=== PATIENT | female | born 1970 | race Caucasian/White ===

== ENCOUNTER 2017-12-13 19:26 | Emergency (ER) | payer SELFPAY ==
[2017-12-13] MEDS ORDERED: MORPHINE SULFATE 10 MG/ML IM ONE (20:05)
[2017-12-13] MEDS ORDERED: Phenergan 25 MG INJ IV ONE (20:05)
[2017-12-13] MEDS ORDERED: Sodium Chloride 0.9% 1000 ML 1,000 ML IV STA (20:05)
[2017-12-13] MEDS ORDERED: Hydromorphone 1 mg/ml Ampule IV ONE ×3 (20:10→22:32)
--- NOTE | 2017-12-13 20:10 | ERPHSYRPT ---
- History of Present Illness Time Seen by Provider: 12/13/17 19:54 Historian: patient Exam Limitations: no limitations Patient Subjective Stated Complaint: pt c/o abd pain, nausea, vomiting blood since this morning Triage Nursing Assessment: pt awake and alert, asnwers questions approp. pt ambulate from wheelchair to stretcher with steady gait noted. respriations nonlabored with lungs cta. abd soft, nontender to light palpation. hypoo bowel sounds noted. pt vomiting thick red blood. Physician History: FOR THE PAST 4 HOURS PT HAS HAD EPIGASTRIC PAIN WITHOUT RADIATION, VOMITED X7 WITH BLOOD AND HAD A BM TODAY WITH DARK BLOOD; DENIES FEVER, HEADACHE, DIARRHEA. PT HAS HAD BLEEDING ULCERS IN THE PAST. Allergies/Adverse Reactions: adhesive Allergy (Verified 12/13/17 19:50) Iodinated Contrast- Oral and IV Dye Allergy (Verified 12/13/17 19:50) Proton Pump Inhibitors Allergy (Verified 12/13/17 19:50) Sulfa (Sulfonamide Antibiotics) Allergy (Verified 12/13/17 19:50) tramadol Allergy (Verified 12/13/17 19:50) metoclopramide [From Reglan] Adverse Reaction (Verified 12/13/17 19:50) morphine Adverse Reaction (Verified 12/13/17 19:50) NSAIDS (Non-Steroidal Anti-Inflamma Adverse Reaction (Verified 12/13/17 19:50) prochlorperazine [From Compazine] Adverse Reaction (Verified 12/13/17 19:50) Home Medications: Folic Acid 1 mg [Folate 1 mg] 1 mg PO DAILY 12/13/17 [History] Levetiracetam [Keppra] 1,000 mg PO BID 12/13/17 [History] Potassium Chloride 60 meq PO BID 12/13/17 [History] Ranitidine HCl [Zantac] 150 mg PO BID 12/13/17 [History] Ropinirole HCl [Requip] 1 mg PO HS 12/13/17 [History] Sertraline HCl [Zoloft] 100 mg PO HS 12/13/17 [History] Spironolactone [Aldactone] 50 mg PO DAILY 12/13/17 [History] Hx Tetanus, Diphtheria Vaccination/Date Given: Yes Hx Influenza Vaccination/Date Given: Yes Hx Pneumococcal Vaccination/Date Given: No Immunizations Up to Date: Yes - Review of Systems Constitutional: No Fever Respiratory: No Dyspnea Cardiac: No Chest Pain Abdominal/Gastrointestinal: Abdominal Pain, Vomiting, Hematemesis, Melena, No Diarrhea Skin: No Rash Neurological: No Headache All Other Systems: Reviewed and Negative - Past Medical History Pertinent Past Medical History: Yes Neurological History: Stroke Respiratory History: Pulmonary Embolism Other Medical History: gitelmans syndrome - Past Surgical History Past Surgical History: Yes Gastrointestinal: Cholecystectomy, Hernia Repair Female Surgical History: Section, Tubal Ligation Other Surgical History: espahagus, ivc filter, port placement - Social History Smoking Status: Never smoker Exposure to second hand smoke: No Drug Use: none Patient Lives Alone: No - Female History Hx Last Menstrual Period: ablation- 2 yrs Hx Now: No - Nursing Vital Signs Nursing Vital Signs: Initial Vital Signs Temperature 99.3 F 12/13/17 19:40 Pulse Rate 118 H 12/13/17 19:40 Respiratory Rate 22 12/13/17 19:40 Blood Pressure 123/82 12/13/17 19:40 O2 Sat by Pulse Oximetry 98 12/13/17 19:40 Pain Scale Pain Intensity 4 - Physical Exam General Appearance: alert Eye Exam: PERRL/EOMI Ears, Nose, Throat Exam: dry mucous membranes Neck Exam: normal inspection Respiratory Exam: lungs clear Cardiovascular Exam: tachycardia Gastrointestinal/Abdomen Exam: soft, tenderness (MILD EPIGASTRIC TENDERNESS), other (B.S. HYPOACTIVE BUT NORMOTONIC) Rectal Exam: normal rectal tone, No blood (ER NURSE PRESENT DURING EXAM) Back Exam: normal range of motion Extremity Exam: normal inspection, No pedal edema Neurologic Exam: alert, cooperative Skin Exam: warm, dry SpO2 Interpretation: normal SpO2: 98 Oxygen Delivery: Room Air - Course Nursing assessment & vital signs reviewed: Yes - CT Exams Abdomen/Pelvis CT Interpretation: Discussed w/radiologist (NO COMPS. SMALL HH W/GERD. A FEW BILATERAL RENAL HYPERDENSE CORTICAL LESIONS WITH LARGEST IN RIGHT KIDNEY 2 CM, MASS VS VISCOUS/COMPLEX CYSTS. MODERATE DIFFUSE FECAL STASIS W/O OBSTRUCTION. NORMAL APPY. SUSPECT 4 CM RIGHT UTERINE FIBROID. IVC FILTER. REMAINING ABD/PEL NEGATIVE.) Ordered Tests: Active Orders 24 hr Category Date Time Status Clean Catch Urine Specimen STAT Care 12/13/17 20:05 Active IV Insertion STAT Care 12/13/17 20:05 Active ABDOMEN AND PELVIS W/0 CONTRAS [CT] Stat Exams 12/13/17 20:06 Taken AMYLASE Stat Lab 12/13/17 20:20 Completed CBC W DIFF Stat Lab 12/13/17 20:20 Completed CMP Stat Lab 12/13/17 20:20 Completed LIPASE Stat Lab 12/13/17 20:20 Completed MAGNESIUM Stat Lab 12/13/17 20:20 Completed Occult Blood,Stool Other Stat Lab 12/13/17 21:21 Completed PROTIME WITH INR Stat Lab 12/13/17 20:20 Completed PTT Stat Lab 12/13/17 20:20 Completed UA W/RFX UR CULTURE Stat Lab 12/13/17 21:21 Completed Urine Triage Profile Stat Lab 12/13/17 21:21 Completed Medication Summary Generic Name Dose Route Start Last Admin Trade Name Freq PRN Reason Stop Dose Admin Potassium Chloride 20 meq in 100 mls @ 50 mls/hr 12/13/17 21:15 12/13/17 22: 24 Potassium Chloride 20 Meq In Water 100ml IV 12/14/17 01:14 50 mls/hr Q2H MARCI Administration Discontinued Medications Generic Name Dose Route Start Last Admin Trade Name Freq PRN Reason Stop Dose Admin Diphenhydramine HCl 50 mg 12/13/17 22:31 12/13/17 22:39 Benadryl 50 Mg/Ml IV 12/13/17 22:32 50 mg STAT ONE Administration Diphenhydramine HCl Confirm 12/13/17 22:36 Benadryl 50 Mg/Ml Administered 12/13/17 22:37 Dose 50 mg .ROUTE .STK-MED ONE Hydromorphone HCl 1 mg 12/13/17 20:10 12/13/17 20:22 Hydromorphone 1 Mg/Ml Ampule IV 12/13/17 20:11 1 mg STAT ONE Administration Hydromorphone HCl Confirm 12/13/17 20:14 Dilaudid 2 Mg Injection Administered 12/13/17 20:15 Dose 2 mg .ROUTE .STK-MED ONE Hydromorphone HCl 1 mg 12/13/17 20:50 12/13/17 20:59 Hydromorphone 1 Mg/Ml Ampule IV 12/13/17 20:51 1 mg STAT ONE Administration Hydromorphone HCl 1 mg 12/13/17 22:32 12/13/17 22:38 Hydromorphone 1 Mg/Ml Ampule IV 12/13/17 22:33 1 mg STAT ONE Administration Hydromorphone HCl Confirm 12/13/17 22:36 Dilaudid 2 Mg Injection Administered 12/13/17 22:37 Dose 2 mg .ROUTE .STK-MED ONE Sodium Chloride 1,000 mls @ 999 mls/hr 12/13/17 20:05 12/13/17 20:24 Sodium Chloride 0.9% 1000 Ml IV 12/13/17 21:05 999 mls/hr .Q1H1M STA Administration Sodium Chloride Confirm 12/13/17 20:14 Sodium Chloride 0.9% 1000 Ml Administered 12/13/17 20:15 Dose 1,000 mls @ ud .ROUTE .STK-MED ONE Magnesium Sulfate/Dextrose 100 mls @ 200 mls/hr 12/13/17 21:13 12/13/17 21:33 Magnesium 1 Gm / 100 Ml D5w IV 12/13/17 21:42 200 mls/hr STAT ONE Administration Magnesium Sulfate/Dextrose Confirm 12/13/17 21:30 Magnesium 1 Gm / 100 Ml D5w Administered 12/13/17 21:31 Dose 100 mls @ ud IV .STK-MED ONE Morphine Sulfate 10 mg 12/13/17 20:05 12/13/17 20:33 Morphine Sulfate 10 Mg/Ml IM 12/13/17 20:06 Not Given STAT ONE Ondansetron HCl 4 mg 12/13/17 22:19 12/13/17 22:23 Zofran 4 Mg/2 Ml Vial IV 12/13/17 22:20 4 mg STAT ONE Administration Ondansetron HCl Confirm 12/13/17 22:22 Zofran 4 Mg/2 Ml Vial Administered 12/13/17 22:23 Dose 4 mg .ROUTE .STK-MED ONE Promethazine HCl 12.5 mg 12/13/17 20:05 12/13/17 20:22 Phenergan 25 Mg Inj IV 12/13/17 20:06 12.5 mg STAT ONE Administration Promethazine HCl Confirm 12/13/17 20:14 Phenergan 25 Mg Inj Administered 12/13/17 20:15 Dose 25 mg .ROUTE .STK-MED ONE Lab/Rad Data: Laboratory Result Diagrams 12/13/17 20:20 12/13/17 20:20 Laboratory Results 12/13/17 12/13/17 12/13/17 Range/Units 21:21 21:21 21:21 WBC (4.0-10.5) K/mm3 RBC (4.1-5.4) M/mm3 Hgb (12.0-16.0) gm/dl Hct (35-47) % MCV (78-100) fl MCH (26-32) pg MCHC (32-36) g/dl RDW (11.5-14.0) % Plt Count (150-450) K/mm3 MPV (6-9.5) fl Gran % (36.0-66.0) % Lymphocytes % (24.0-44.0) % Monocytes % (0.0-12.0) % Eosinophils % (0.00-5.0) % Basophils % (0.0-0.4) % Basophils # (0-0.4) INR (0.8-3.0) APTT (25.3-37.0) SECONDS Sodium (136-145) mEq/L Potassium (3.5-5.1) mEq/L Chloride (98-107) mEq/L Carbon Dioxide (21-32) mEq/L Anion Gap (5-15) MEQ/L BUN (9-20) mg/dL Creatinine (0.55-1.30) mg/dl Estimated GFR ML/MIN Glucose (70-110) MG/DL Calcium (8.5-10.1) mg/dL Magnesium (1.8-2.4) mg/dL Total Bilirubin (0.2-1.0) mg/dL AST (15-37) U/L ALT (12-78) U/L Alkaline Phosphatase (46-116) U/L Serum Total Protein (6.4-8.2) gm/dL Albumin (3.4-5.0) g/dL Amylase (25-115) U/L Lipase (73-393) U/L Ur Collection Type CCMS Urine Color YELLOW (YELLOW) Urine Appearance SLIGHTLY CLOUDY (CLEAR) Urine pH 6.0 (5-6) Ur Specific [place] 1.010 (1.005-1.025) Urine Protein NEGATIVE (Negative) Urine Ketones NEGATIVE (NEGATIVE) Urine Blood NEGATIVE (0-5) Manoj/ul Urine Nitrite NEGATIVE (NEGATIVE) Urine Bilirubin SMALL (NEGATIVE) Urine Urobilinogen NORMAL (0-1) mg/dL Ur Leukocyte Esterase NEGATIVE (NEGATIVE) Urine Culture Reflexed NO (NO) Urine Glucose NEGATIVE (NEGATIVE) mg/dL Stool Occult Blood NEGATIVE (Negative) Urine Opiates Level POS. (NEGATIVE) Ur Methadone NEG. (NEGATIVE) Urine Barbiturates NEG. (NEGATIVE) Ur Phencyclidine (PCP) NEG. (NEGATIVE) Urine Amphetamine NEG. (NEGATIVE) U Benzodiazepine Level NEG. (NEGATIVE) Urine Cocaine NEG. (NEGATIVE) Urine Marijuana (THC) NEG. (NEGATIVE) Specimen Received 12-13-17 2200 ABO Group Rh Factor Antibody Screen (NEGATIVE) 12/13/17 12/13/17 12/13/17 Range/Units 20:20 20:20 20:20 WBC (4.0-10.5) K/mm3 RBC (4.1-5.4) M/mm3 Hgb (12.0-16.0) gm/dl Hct (35-47) % MCV (78-100) fl MCH (26-32) pg MCHC (32-36) g/dl RDW (11.5-14.0) % Plt Count (150-450) K/mm3 MPV (6-9.5) fl Gran % (36.0-66.0) % Lymphocytes % (24.0-44.0) % Monocytes % (0.0-12.0) % Eosinophils % (0.00-5.0) % Basophils % (0.0-0.4) % Basophils # (0-0.4) INR 1.10 (0.8-3.0) APTT 29.2 (25.3-37.0) SECONDS Sodium (136-145) mEq/L Potassium (3.5-5.1) mEq/L Chloride (98-107) mEq/L Carbon Dioxide (21-32) mEq/L Anion Gap (5-15) MEQ/L BUN (9-20) mg/dL Creatinine (0.55-1.30) mg/dl Estimated GFR ML/MIN Glucose (70-110) MG/DL Calcium (8.5-10.1) mg/dL Magnesium 1.3 L (1.8-2.4) mg/dL Total Bilirubin (0.2-1.0) mg/dL AST (15-37) U/L ALT (12-78) U/L Alkaline Phosphatase (46-116) U/L Serum Total Protein (6.4-8.2) gm/dL Albumin (3.4-5.0) g/dL Amylase (25-115) U/L Lipase (73-393) U/L Ur Collection Type Urine Color (YELLOW) Urine Appearance (CLEAR) Urine pH (5-6) Ur Specific [place] (1.005-1.025) Urine Protein (Negative) Urine Ketones (NEGATIVE) Urine Blood (0-5) Manoj/ul Urine Nitrite (NEGATIVE) Urine Bilirubin (NEGATIVE) Urine Urobilinogen (0-1) mg/dL Ur Leukocyte Esterase (NEGATIVE) Urine Culture Reflexed (NO) Urine Glucose (NEGATIVE) mg/dL Stool Occult Blood (Negative) Urine Opiates Level (NEGATIVE) Ur Methadone (NEGATIVE) Urine Barbiturates (NEGATIVE) Ur Phencyclidine (PCP) (NEGATIVE) Urine Amphetamine (NEGATIVE) U Benzodiazepine Level (NEGATIVE) Urine Cocaine (NEGATIVE) Urine Marijuana (THC) (NEGATIVE) Specimen Received ABO Group B Rh Factor POSITIVE Antibody Screen NEGATIVE (NEGATIVE) 12/13/17 12/13/17 Range/Units 20:20 20:20 WBC 4.9 (4.0-10.5) K/mm3 RBC 4.00 L (4.1-5.4) M/mm3 Hgb 11.6 L (12.0-16.0) gm/dl Hct 36.2 (35-47) % MCV 90.5 (78-100) fl MCH 29.0 (26-32) pg MCHC 32.0 (32-36) g/dl RDW 14.5 H (11.5-14.0) % Plt Count 345 (150-450) K/mm3 MPV 8.9 (6-9.5) fl Gran % 64.0 (36.0-66.0) % Lymphocytes % 25.3 (24.0-44.0) % Monocytes % 9.9 (0.0-12.0) % Eosinophils % 0.6 (0.00-5.0) % Basophils % 0.2 (0.0-0.4) % Basophils # 0.01 (0-0.4) INR (0.8-3.0) APTT (25.3-37.0) SECONDS Sodium 140 (136-145) mEq/L Potassium 2.8 L* (3.5-5.1) mEq/L Chloride 103 (98-107) mEq/L Carbon Dioxide 29.5 (21-32) mEq/L Anion Gap 10.5 (5-15) MEQ/L BUN 16 (9-20) mg/dL Creatinine 0.87 (0.55-1.30) mg/dl Estimated GFR > 60 ML/MIN Glucose 114 H (70-110) MG/DL Calcium 9.3 (8.5-10.1) mg/dL Magnesium (1.8-2.4) mg/dL Total Bilirubin 0.20 (0.2-1.0) mg/dL AST 23 (15-37) U/L ALT 22 (12-78) U/L Alkaline Phosphatase 88 (46-116) U/L Serum Total Protein 7.8 (6.4-8.2) gm/dL Albumin 3.6 (3.4-5.0) g/dL Amylase 50 (25-115) U/L Lipase 129 (73-393) U/L Ur Collection Type Urine Color (YELLOW) Urine Appearance (CLEAR) Urine pH (5-6) Ur Specific [place] (1.005-1.025) Urine Protein (Negative) Urine Ketones (NEGATIVE) Urine Blood (0-5) Manoj/ul Urine Nitrite (NEGATIVE) Urine Bilirubin (NEGATIVE) Urine Urobilinogen (0-1) mg/dL Ur Leukocyte Esterase (NEGATIVE) Urine Culture Reflexed (NO) Urine Glucose (NEGATIVE) mg/dL Stool Occult Blood (Negative) Urine Opiates Level (NEGATIVE) Ur Methadone (NEGATIVE) Urine Barbiturates (NEGATIVE) Ur Phencyclidine (PCP) (NEGATIVE) Urine Amphetamine (NEGATIVE) U Benzodiazepine Level (NEGATIVE) Urine Cocaine (NEGATIVE) Urine Marijuana (THC) (NEGATIVE) Specimen Received ABO Group Rh Factor Antibody Screen (NEGATIVE) - Progress Progress Note: 12/13/17 23:04 PT STATES SHE DID NOT HAVE ALLERGIC SYMPTOMS TO PROTONIX SUCH SHORTNESS OF AIR OR RASH. Discussed with Dr.: Other (SPOKE WITH DR ELLISON WHO ACCEPTED PT FOR TRANSFER TO [facility].) - Departure Time of Disposition: 23:06 Departure Disposition: Transfer ([facility]) Clinical Impression: UPPER GI HEMORRHAGE, HYPOKALEMIA, HYPOMAGNESEMIA, HX PE Condition: Stable Critical Care Time: Yes Critical Care Time(excluding separately billable procedures): 30-74 minutes Referrals: DOCTOR,NO FAMILY [Primary Care Provider] -
[2017-12-13] MEDS ORDERED: DILAUDID 2 MG INJECTION ONE ×2 (20:14→22:36)
[2017-12-13] MEDS ORDERED: Sodium Chloride 0.9% 1000 ML 1,000 ML ONE (20:14)
[2017-12-13] MEDS ORDERED: Phenergan 25 MG INJ ONE ×3 (20:14→23:50)
[2017-12-13 20:29] LABS: BASOPHIL % 0.2 % (0.0-0.4); Basophil (Absolute #) 0.01 (0-0.4); Eosinophil % 0.6 % (0.00-5.0); Eosinophil (Absolute #) 0.03 (0-0.5); Granulocyte Absolute (ANC) 3.11 (1.4-6.9); Hematocrit 36.2 % (35-47); Hemoglobin 11.6 gm/dl (12.0-16.0); Lymphocyte (Absolute #) 1.23 (1.0-4.6); Lymphocytes % 25.3 % (24.0-44.0); Mean Cell Volume 90.5 fl (78-100); Mean Platelet Volume 8.9 fl (6-9.5); Monocyte (Absolute #) 0.48 (0.0-1.3); Monocytes % 9.9 % (0.0-12.0); Platelet Count 345 K/mm3 (150-450); Red Cell Distribution Width 14.5 % (11.5-14.0); White Blood Count 4.9 K/mm3 (4.0-10.5)
[2017-12-13 20:50] LABS: INR 1.1 (0.8-3.0)
[2017-12-13 20:53] LABS: PTT 29.2 SECONDS (25.3-37.0)
[2017-12-13 20:56] LABS: ALBUMIN 3.6 g/dL (3.4-5.0); ALKALINE PHOSPHATASE 88 U/L (46-116); AMYLASE 50 U/L (25-115); ANION GAP 10.5 MEQ/L (5-15); BLOOD UREA NITROGEN 16 mg/dL (9-20); CHLORIDE 103 mEq/L (98-107); Calcium 9.3 mg/dL (8.5-10.1); Carbon Dioxide 29.5 mEq/L (21-32); Creatinine 1 0.87 mg/dl (0.55-1.30); EST GLOMERULAR FILTRATION RATE > 60 ML/MIN; Glucose 114 MG/DL (70-110); LIPASE 129 U/L (73-393); SGOT/AST 23 U/L (15-37); SGPT/ALT 22 U/L (12-78); SODIUM 140 mEq/L (136-145); Total Protein 7.8 gm/dL (6.4-8.2)
[2017-12-13 21:06] LABS: Potassium 2.8 mEq/L (3.5-5.1)
[2017-12-13] MEDS ORDERED: Magnesium 1 Gm / 100 Ml D5W*** 100 ML IV ONE ×2 (21:13→21:30)
[2017-12-13] MEDS ORDERED: POTASSIUM CHLORIDE 20 mEq IN WATER 100ML 20 MEQ/100 ML BAG IV SCH (21:15)
[2017-12-13] MEDS ORDERED: POTASSIUM CHLORIDE 20 mEq IN WATER 100ML 100 ML IV ONE (21:30)
[2017-12-13 21:58] LABS: ABO TYPING B; Antibody Screen NEGATIVE (NEGATIVE); RH TYPING POSITIVE
[2017-12-13 22:04] LABS: Appearance SLIGHTLY CLOUDY (CLEAR); Bilirubin SMALL (NEGATIVE); Blood NEGATIVE Ery/ul (0-5); Glucose NEGATIVE (NEGATIVE); Ketones NEGATIVE (NEGATIVE); Leukocyte Esterase NEGATIVE (NEGATIVE); Nitrite NEGATIVE (NEGATIVE); Protein,Urine Dip NEGATIVE (Negative); Urobilinogen NORMAL mg/dL (0-1)
[2017-12-13 22:06] LABS: Amphetamine,Urine NEG. (NEGATIVE); Barbiturate,Urine NEG. (NEGATIVE); Benzodiazepine,Urine NEG. (NEGATIVE); Cocaine,Urine NEG. (NEGATIVE); Methadone,Urine NEG. (NEGATIVE); Opiate,Urine POS. (NEGATIVE); PCP,Urine NEG. (NEGATIVE); THC,Urine NEG. (NEGATIVE)
[2017-12-13] MEDS ORDERED: Zofran 4 MG/2 ML VIAL IV ONE (22:19)
[2017-12-13] MEDS ORDERED: Zofran 4 MG/2 ML VIAL ONE (22:22)
[2017-12-13] MEDS ORDERED: POTASSIUM CHLORIDE 20 mEq IN WATER 100ML 0 ML IV ONE (22:24)
[2017-12-13] MEDS ORDERED: BENADRYL 50 MG/ML IV ONE (22:31)
[2017-12-13] MEDS ORDERED: BENADRYL 50 MG/ML ONE (22:36)
[2017-12-13] MEDS ORDERED: PROTONIX 40 MG IV IV ONE ×2 (23:06→23:07)
[2017-12-14] MEDS ORDERED: Hydromorphone 1 mg/ml Ampule IV ONE (00:04)
[2017-12-14] MEDS ORDERED: Phenergan 25 MG INJ IV ONE (00:04)
[2017-12-14 00:06] VITALS: BP 106/72; PULSE 88; O2SAT 97
--- NOTE | 2017-12-14 09:06 | XRAY ---
Indication: Abdominal pain, nausea, and bloody emesis. Multiple contiguous axial images obtained through the abdomen and pelvis without contrast as ordered. Comparison: None. Lung bases dense is minimal bibasilar dependent atelectasis. Heart is not enlarged. Small hiatal hernia with small intraluminal fluid presumed from gastroesophageal reflux. Noncontrasted stomach and bowel loops appear nonobstructed. There is moderate diffuse scattered colonic fecal debris throughout. Normal appendix. No free fluid/air. There is a 4 cm right adnexal soft tissue mass that appears to be contiguous with the uterus possibly fibroid. Left and right ovaries unremarkable. A few scattered bilateral renal round hyperdense lesions, largest right mid kidney measuring 2 cm either mass versus viscous/complex cysts. Punctate right renal cortical calcification. No hydronephrosis or hydroureter. There is an IVC filter in situ and previous cholecystectomy. Remaining liver, pancreas, spleen, adrenal glands, kidneys, ureters, bladder, uterus, and aorta appear unremarkable for noncontrast exam. Osseous structures intact with mild lumbar degenerative changes and mild levoscoliosis. Previous ventral hernia repair with intact mesh graft. Impression: 1. Fecal stasis without obstruction. 2. Suspect 4 cm uterine fibroid. Pelvic sonogram may yield further information if clinically warranted. 3. Bilateral round renal hyperdense lesions, mass versus viscous/complex cysts. Renal ultrasound may yield further information. 4. Hiatal hernia with intraluminal fluid presumed from gastroesophageal reflux. CT DI 15.90
== END 2017-12-14 00:01 | disposition short-term general hospital (02) ==
LOC: ED 19:26
DX: K92.2 Gastrointestinal hemorrhage, unspecified (principal); E87.6 Hypokalemia; E83.42 Hypomagnesemia; Z79.899 Other long term (current) drug therapy; Z86.711 Personal history of pulmonary embolism
CPT/HCPCS: 36000; 36415; 74176; 80053; 80307; 81002; 82150; 82272; 83690; 83735; 85025; 85610; 85730; 86850; 86900; 86901; 93041; 96360; 96365; 96367; 96374; 96375; 96376; 99285; J1170; J1200; J2405; J2550; J3475; J3480